=== PATIENT | female | born 1965 | race Caucasian/White ===

== ENCOUNTER 2021-07-22 15:02 | Emergency (ER) | payer OTHER ==
[2021-07-22 15:20] VITALS: BP 141/83; PULSE 86; TEMP 98.5; BMI 36.9
[2021-07-22 17:23] LABS: BASO % 0.4 % (0-2.0); EOS % 0.2 % (0-4.5); HEMATOCRIT 44.5 % (32.4-45.2); HEMOGLOBIN 14.9 GM/dL (10.7-15.3); LYMPH % 22.9 % (8-40); MCH 27.9 pg (25.7-33.7); MCHC 33.5 g/dl (32.0-36.0); MEAN CELL VOLUME 83.3 fl (80-96); MEAN PLT VOLUME 7.9 fl (7.5-11.1); MONO % 5.8 % (3.8-10.2); NEUT % 70.7 % (42.8-82.8); PLATELET COUNT 278 10^3/uL (134-434); RBC 5.35 M/mm3 (3.60-5.2); RDW 13.4 % (11.6-15.6); WHITE BLOOD COUNT 7.5 K/mm3 (4.0-10.0)
[2021-07-22 17:46] LABS: ALBUMIN 3.9 g/dl (3.4-5.0); BLOOD UREA NITROGEN 14.4 mg/dL (7-18); MAGNESIUM 2.5 mg/dL (1.8-2.4)
[2021-07-22 17:49] LABS: CREATININE 0.8 mg/dL (0.55-1.3)
[2021-07-22 17:51] LABS: BILIRUBIN,TOTAL 0.4 mg/dL (0.2-1)
== END 2021-07-22 19:28 | disposition home or self-care (01) ==
LOC: JER 15:02
DX: R07.89 Other chest pain (principal)
CPT/HCPCS: 36415; 71046-TC-FY; 80053; 83735; 84484; 85025; 93005; 93010; 99285-25